=== PATIENT | female | born 1945 | race Caucasian/White ===

== ENCOUNTER → 2018-04-15 | Outpatient (CLI) | payer MEDICARE, BC ==
[2018-04-15 10:27] LABS: Basophils % (A) 1 %; Eosinophils # (A) 0.2 k/uL (0-0.7); Eosinophils % (A) 3 %; HCT 45.6 % (34.0-46.0); HGB 14.4 gm/dL (11.4-16.0); Lymphocytes # (A) 1.4 k/uL (1.0-4.8); Lymphocytes % (A) 19 %; MCH 29.6 pg (25.0-35.0); MCHC 31.6 g/dL (31.0-37.0); MCV 93.5 fL (80.0-100.0); Monocytes # (A) 0.4 k/uL (0-1.0); Monocytes % (A) 6 %; Neutrophils % (A) 70 %; Platelet Count 229 k/uL (150-450); RBC 4.88 m/uL (3.80-5.40); RDW 12.8 % (11.5-15.5); WBC 7.1 k/uL (3.8-10.6)
[2018-04-15 10:29] LABS: Appearance,Urine Cloudy (Clear); Bacteria,Urine Occasional /hpf; Bilirubin,Urine Negative (Negative); Blood,Urine Trace (Negative); Color,Urine Light Yellow; Glucose,Urine (UA) Negative (Negative); Hyaline Casts,Urine 1 /lpf (0-2); Ketones,Urine Negative (Negative); Leukocyte Esterase,Urine Large (Negative); Mucus,Urine Rare /hpf; Nitrite,Urine Positive (Negative); PH, Urine 5.5 (5.0-8.0); Protein,Urine Negative (Negative); RBC,Urine 2 /hpf (0-5); Specific Gravity,Urine 1.012 (1.001-1.035); Squamous Epithelial Cell,Urine 5 /hpf (0-4); Urobilinogen,Urine <2.0 mg/dL (<2.0); WBC,Urine 19 /hpf (0-5)
[2018-04-15 10:40] LABS: Albumin 4.4 g/dL (3.5-5.0); Calcium 9.8 mg/dL (8.4-10.2); Potassium 4.5 mmol/L (3.5-5.1); Total Bilirubin 0.4 mg/dL (0.2-1.3); Total Protein 7.3 g/dL (6.3-8.2); Uric Acid 5.5 mg/dL (3.7-7.4)
[2018-04-15 10:53] LABS: T4, Free (Free Thyroxine) 1.6 ng/dL (0.78-2.19)
[2018-04-15 17:54] LABS: Hemoglobin A1C 5.7 % (4.0-6.0)
== END | disposition home or self-care (01) ==
LOC: LABWHC1 09:42
PROVIDERS: ATTEND Internal Medicine
DX: Z00.00 Encounter for general adult medical examination without abnormal findings (principal); M81.0 Age-related osteoporosis without current pathological fracture; I10 Essential (primary) hypertension; E78.5 Hyperlipidemia, unspecified; E03.9 Hypothyroidism, unspecified
CPT/HCPCS: 36415; 80053; 80061; 81001; 82306; 82550; 83036; 83735; 84439; 84443; 84550; 85025

== ENCOUNTER → 2019-01-23 | Outpatient (CLI) | payer MEDICARE, BC ==
[2019-01-23 10:54] LABS: Basophils % (A) 1 %; Eosinophils # (A) 0.2 k/uL (0-0.7); Eosinophils % (A) 3 %; HGB 14.3 gm/dL (11.4-16.0); Lymphocytes % (A) 16 %; MCH 29.6 pg (25.0-35.0); MCHC 31.7 g/dL (31.0-37.0); MCV 93.4 fL (80.0-100.0); Mean Platelet Volume 7.6; Monocytes # (A) 0.3 k/uL (0-1.0); Monocytes % (A) 5 %; Neutrophils # (A) 4.7 k/uL (1.3-7.7); Neutrophils % (A) 75 %; Platelet Count 229 k/uL (150-450); RBC 4.82 m/uL (3.80-5.40); RDW 13.9 % (11.5-15.5); WBC 6.3 k/uL (3.8-10.6)
[2019-01-23 19:31] LABS: Albumin 4.5 g/dL (3.80-4.90); Albumin/Globulin Ratio 2.14 (1.60-3.17); Anion Gap 11.7 mmol/L (4.00-12.00); Calcium 9.5 mg/dL (8.7-10.3); Carbon Dioxide 24.3 mmol/L (21.6-31.8); Globulin 2.1 g/dL (1.6-3.3); Magnesium 1.9 mg/dL (1.5-2.4); Potassium 4.4 mmol/L (3.5-5.5); Total Bilirubin 0.5 mg/dL (0.3-1.2); Total Protein 6.6 g/dL (6.2-8.2); Uric Acid 5.8 mg/dL (2.9-7.7)
[2019-01-23 19:40] LABS: T4, Free (Free Thyroxine) 1.5 ng/dL (0.80-1.80)
[2019-01-23 20:53] LABS: Hemoglobin A1C 5.9 % (4.0-6.0)
== END | disposition home or self-care (01) ==
LOC: LABWHC1 10:05
PROVIDERS: ATTEND Internal Medicine Cardiovascular Disease
DX: R73.01 Impaired fasting glucose (principal); I10 Essential (primary) hypertension; F32.9 Major depressive disorder, single episode, unspecified; E03.9 Hypothyroidism, unspecified; E78.2 Mixed hyperlipidemia
CPT/HCPCS: 36415; 80053; 80061; 82550; 83036; 83735; 84439; 84443; 84550; 85025

== ENCOUNTER → 2019-10-15 | Outpatient (CLI) | payer MEDICARE, BC ==
[2019-10-15 12:02] LABS: Basophils # (A) 0.1 k/uL (0-0.2); Basophils % (A) 1 %; Eosinophils # (A) 0.3 k/uL (0-0.7); Eosinophils % (A) 4 %; HCT 44.3 % (34.0-46.0); HGB 14.1 gm/dL (11.4-16.0); Lymphocytes # (A) 1.1 k/uL (1.0-4.8); Lymphocytes % (A) 17 %; MCH 29.9 pg (25.0-35.0); MCHC 31.8 g/dL (31.0-37.0); MCV 94.1 fL (80.0-100.0); Mean Platelet Volume 7.7; Monocytes # (A) 0.3 k/uL (0-1.0); Monocytes % (A) 5 %; Neutrophils # (A) 4.8 k/uL (1.3-7.7); Neutrophils % (A) 73 %; Platelet Count 259 k/uL (150-450); RBC 4.71 m/uL (3.80-5.40); RDW 12.9 % (11.5-15.5); WBC 6.6 k/uL (3.8-10.6)
[2019-10-15 17:52] LABS: African American GFR (CKD) 72.5 (60.0-200.0); Albumin 4.6 g/dL (3.80-4.90); Albumin/Globulin Ratio 2.19 (1.60-3.17); Anion Gap 5.8 mmol/L (4.00-12.00); BUN/Creat Ratio 17.78 Ratio (12.00-20.00); Calcium 9.5 mg/dL (8.7-10.3); Carbon Dioxide 29.2 mmol/L (21.6-31.8); Globulin 2.1 g/dL (1.6-3.3); LDL Cholesterol,Calculated 86.2 mg/dL (0.0-131.0); Non-African American GFR(CKD) 62.5 (60.0-200.0); Potassium 4.2 mmol/L (3.5-5.5); Total Bilirubin 0.6 mg/dL (0.3-1.2); Total Protein 6.7 g/dL (6.2-8.2); VLDL Calculation 25.8 mg/dL (5.00-40.00)
[2019-10-15 17:59] LABS: T4, Free (Free Thyroxine) 1.4 ng/dL (0.80-1.80)
== END | disposition home or self-care (01) ==
LOC: LABWHC1 10:23
PROVIDERS: ATTEND Internal Medicine
DX: I10 Essential (primary) hypertension (principal); E03.9 Hypothyroidism, unspecified; E78.5 Hyperlipidemia, unspecified; R73.03 Prediabetes
CPT/HCPCS: 36415; 80053; 80061; 83036; 84439; 84443; 85025

== ENCOUNTER → 2020-06-11 | Outpatient (CLI) | payer MEDICARE, BC ==
[2020-06-11 22:23] LABS: Chol/HDL Ratio 2.93; LDL Cholesterol,Calculated 86.6 mg/dL (0.0-131.0); VLDL Calculation 25.4 mg/dL (5.00-40.00)
== END | disposition home or self-care (01) ==
LOC: LABWHC1 10:59
PROVIDERS: ATTEND Internal Medicine Cardiovascular Disease
DX: E78.2 Mixed hyperlipidemia (principal)
CPT/HCPCS: 36415; 80061; 84450; 84460

== ENCOUNTER → 2021-08-03 | Outpatient (CLI) | payer MEDICARE, BC ==
[~2021-08-03] MED LIST: BAMLANIVIMAB (EUA) 700 MG, ETESEVIMAB (EUA) 1,400 MG in SODIUM CHLORIDE 0.9% 50 ML IVPB ONE; SODIUM CHLORIDE 0.9% 50 ML IVPB ONE; SODIUM CHLORIDE 0.9% 500 ML 500 ML in EMPTY BAG 1 BAG IV PRN
[2021-08-03 10:29] VITALS: RESP 18; TEMP 97.8
[2021-08-03 11:43] VITALS: BP 183/82; PULSE 57
== END ==
LOC: PROCWHC3 10:09
PROVIDERS: ATTEND Internal Medicine
DX: U07.1 COVID-19 (principal); I51.9 Heart disease, unspecified; U09.9 Post COVID-19 condition, unspecified; Z88.2 Allergy status to sulfonamides
CPT/HCPCS: 96360; J3490; M0243

== ENCOUNTER → 2024-03-14 | Outpatient (CLI) | payer MEDICARE, BC ==
--- NOTE | 2024-03-14 09:38 | US ---
EXAMINATION TYPE: US kidneys/renal and bladder DATE OF EXAM: 03/14/2024 COMPARISON: CT 2015, US 2010 CLINICAL INDICATION: Female, 78 years old with history of R31.1 MICRO HEMATURIA; EXAM MEASUREMENTS: Right Kidney: 10.4 x 4.3 x 5.3 cm Left Kidney: 9.6 x 4.9 x 4.7 cm Right Kidney: No hydronephrosis or masses seen Left Kidney: No hydronephrosis or masses seen Bladder: not fully distended, appears wnl as seen Bilateral Jets seen: no There is no evidence for hydronephrosis at this point in time. No nephrolithiasis is seen. Corticome dullary differentiation is maintained bilaterally. No masses are identified. The urinary bladder is not fully distended but appears anechoic. Bilateral ureteral jets are not seen. IMPRESSION: No hydronephrosis or nephrolithiasis.
== END | disposition home or self-care (01) ==
LOC: RADUSWWP 08:41
PROVIDERS: ATTEND Urology
DX: R31.1 Benign essential microscopic hematuria (principal)
CPT/HCPCS: 76770

== ENCOUNTER → 2024-06-20 | Outpatient (CLI) | payer MEDICARE, BC ==
--- NOTE | 2024-06-20 17:37 | CT ---
INDICATION: Patient age:Female; 79 years old; Reason for study: N32.1 VESICOINTESTINAL FISTULA; [facility]. COMPARISON: CT abdomen and pelvis 06/14/2016, renal ultrasound 03/14/2024. TECHNIQUE: Standard transaxial images of the pelvis before and after the administration of dilute con trast material into the urinary bladder via Jennings catheter. Approximately 50 cc of dilute Isovue 70 w as injected through the catheter. Patient was unable to tolerate prone position. Coronal reformatted images were obtained from both data sets. One or more CT dose reduction strategies were utilized duri ng this examination. DLP administered was 691 mGycm. FINDINGS: Jennings catheter identified within the urinary bladder with a single focus of gas in the nondependent p ortion from Jennings catheter manipulation. Cystocele is redemonstrated The images of the urinary bladde r filled do not show evidence of contrast extravasation. No definitive mucosal injury is noted. There is some symmetric wall thickening in the posterior urinary bladder wall. There is no evidence of pneumoperitoneum, fluid free fluid, or adenopathy. Postsurgical changes of the anterior lower abdominal wall at midline with scarring demonstrated. The appendix is within normal limits. No focal bowel wall thickening or surrounding inflammatory regalado ges. Anastomosis at the rectosigmoid junction. No visualized evidence for obstruction. Uterus appears unremarkable. The osseous structures appear intact. Grade 1 anterolisthesis of L4-L5 without evidence of pars defec ts. IMPRESSION 1. No CT evidence for vesicointestinal fistula. 2. Similar urinary bladder cystocele with urinary bladder wall thickening. Correlate for cystitis urinalysis. [facility], , 06/20/2024 5:35 PM
== END | disposition home or self-care (01) ==
LOC: RADCTMAIN 15:35
PROVIDERS: ATTEND Urology
DX: N32.1 Vesicointestinal fistula
CPT/HCPCS: 72192

== ENCOUNTER → 2024-08-24 | Outpatient (CLI) | payer MEDICARE, BC ==
[2024-08-24 17:39] LABS: ALT 15 U/L (8-44); AST 23 U/L (13-35); BUN/Creat Ratio 19.78 Ratio (12.00-20.00); Blood Urea Nitrogen 17.8 mg/dL (9.0-27.0); Carbon Dioxide 24.1 mmol/L (21.6-31.8); Chloride 99 mmol/L (96-109); Chol/HDL Ratio 2.81 Ratio; Glucose 118 mg/dL (70-110); LDL Cholesterol,Calculated 77.9 mg/dL (0.0-131.0); Potassium 4.9 mmol/L (3.5-5.5); Sodium 136 mmol/L (135-145)
[2024-08-24 18:02] LABS: NT-Pro-B-Type Natriuretic Pept 289 pg/mL (0-450)
[2024-08-24 18:31] LABS: HCT 44.7 % (37.2-46.3); HGB 13.6 g/dL (12.0-15.0); MCH 29.1 pg (27.0-32.0); MCHC 30.4 g/dL (32.0-37.0); MCV 95.5 FL (80.0-97.0); Mean Platelet Volume 10.2 FL (9.5-12.2); NRBC Per 100 WBC 0 X 10*3/uL (0.00-0.01); Platelet Count 358 X 10*3/uL (140-440); RBC 4.68 X 10*6/uL (4.10-5.20); RDW 13.5 % (11.5-14.5); WBC 10.22 X 10*3/uL (4.50-10.00)
== END | disposition home or self-care (01) ==
LOC: LABWHC1 11:23
PROVIDERS: ATTEND Internal Medicine Cardiovascular Disease
DX: E78.2 Mixed hyperlipidemia (principal); R60.9 Edema, unspecified
CPT/HCPCS: 36415; 80048; 80061; 83880; 84443; 84450; 84460; 85027

== ENCOUNTER 2025-01-28 12:12 | Inpatient (IN) | payer MEDICARE, BC ==
--- NOTE | 2025-01-28 13:09 | ED ---
General Adult HPI - General Chief complaint: Recheck/Abnormal Lab/Rx Stated complaint: Weakness Time Seen by Provider: 01/28/25 12:46 Source: patient, RN notes reviewed Mode of arrival: ambulatory Limitations: no limitations - History of Present Illness Initial comments: 79-year-old female presents to the emergency department for generalized weakness. Patient states that this been going on for about a week. She notes that it is progressively worsening. Patient reports that because of this she is having difficulty with ambulation. She does note recurrent urinary tract infections. She is currently on Macrobid. She was on Bactrim prior to this. She does note continued symptoms of urinary frequency and dysuria. Denies any known fever. Does endorse chills. Denies any pain. She does report a fall that happened on . Denies any head injury. She is on Eliquis. - Related Data Home Medications Medication Instructions Recorded Confirmed Levothyroxine Sodium [Synthroid] 150 mcg PO DAILY 01/31/14 08/03/21 Simvastatin [Zocor] 10 mg PO HS 01/31/14 08/03/21 Losartan [Cozaar] 50 mg PO DAILY 07/30/15 08/03/21 Metoprolol Tartrate [Lopressor] 12.5 mg PO BID 07/30/15 08/03/21 Cetirizine HCl [Zyrtec] 10 mg PO DAILY PRN 04/09/16 08/03/21 Aspirin EC [Ecotrin] 325 mg PO DAILY 07/13/16 08/03/21 Azithromycin 250 mg PO BID 08/03/21 08/03/21 Latanoprost/Pf [Latanoprost 0.005% 1 drop BOTH EYES DAILY 08/03/21 08/03/21 Eye Drop] dexAMETHasone [Dexamethasone] 6 mg PO DAILY 08/03/21 08/03/21 timoloL maleate [timoloL maleate 1 drop BOTH EYES DAILY 08/03/21 08/03/21 0.25%] Allergies Allergy/AdvReac Type Severity Reaction Status Date / Time No Known Allergies Allergy Verified 01/28/25 12:16 Review of Systems ROS Statement: Those systems with pertinent positive or pertinent negative responses have been documented in the HPI. ROS Other: All systems not noted in ROS Statement are negative. Past Medical History Past Medical History: Hyperlipidemia, Hypertension, Musculoskeletal Disorder, Osteoarthritis (OA), Skin Disorder, Thyroid Disorder Additional Past Medical History / Comment(s): OCC PSORIASIS IN [place]. Radioactive Iodine tx for Thyroid 1999. Hx of Acute Diverticulitis W/ PERFORATION 08/26 - Colostomy @[facility]. UTI 04/2016. History of Any Multi-Drug Resistant Organisms: None Reported Past Surgical History: Bowel Resection, Cardiac Valve Replacement, Cholecystectomy, Heart Catheterization Additional Past Surgical History / Comment(s): 07/13/16 bilateral ureteral stents, extensive lysis of adhesions, colostomy reversal, peristomal hernia repair. Other surgical hx: Aortic Valve Replacement w/ Tissue Valve 01/2011. Colonoscopies. Colostomy 07/2015. Past Anesthesia/Blood Transfusion Reactions: Motion Sickness Additional Past Anesthesia/Blood Transfusion Reaction / Comment(s): MOTION SICKNESS CHILD Past Psychological History: Anxiety Smoking Status: Never smoker Past Alcohol Use History: None Reported Past Drug Use History: None Reported - Past Family History Mother Family Medical History: No Reported History, Hyperlipidemia, Hypertension, Renal Disease Additional Family Medical History / Comment(s): diverticulitis Father Family Medical History: Dementia, Hypertension Brother(s) Family Medical History: No Reported History Sister(s) Family Medical History: No Reported History Son(s) Family Medical History: No Reported History Daughter(s) Family Medical History: No Reported History General Exam Limitations: no limitations General appearance: alert, in no apparent distress Head exam: Present: atraumatic, normocephalic, normal inspection Eye exam: Present: normal appearance, PERRL, EOMI. Absent: scleral icterus, conjunctival injection, periorbital swelling ENT exam: Present: normal exam, mucous membranes moist Neck exam: Present: normal inspection. Absent: tenderness, meningismus, lymphadenopathy Respiratory exam: Present: normal lung sounds bilaterally. Absent: respiratory distress, wheezes, rales, rhonchi, stridor Cardiovascular Exam: Present: regular rate, normal rhythm, normal heart sounds. Absent: systolic murmur, diastolic murmur, rubs, gallop, clicks GI/Abdominal exam: Present: soft. Absent: distended, tenderness, guarding, rebound, rigid Extremities exam: Present: normal inspection, full ROM, normal capillary refill. Absent: tenderness, pedal edema, joint swelling, calf tenderness Neurological exam: Present: alert, oriented X3 Psychiatric exam: Present: normal affect, normal mood Skin exam: Present: warm, dry, intact, normal color. Absent: rash Course Vital Signs 01/28/25 12:13 Temperature 97.5 F L Pulse Rate 69 Respiratory 18 Rate Blood Pressure 125/85 O2 Sat by Pulse 96 Oximetry Medical Decision Making - Medical Decision Making Was pt. sent in by a medical professional or institution (SARAH Quiroz, MASSAGE OPERATOR, urgent care, hospital, or long-term...) When possible be specific @ -[No] Did you speak to anyone other than the patient for history (EMS, parent, family, police, friend...)? What history was obtained from this source @ -[No] Did you review nursing and triage notes (agree or disagree)? Why? @ -[I reviewed and agree with nursing and triage notes] Were old charts reviewed (outside hosp., previous admission, EMS record, old EKG, old radiological studies, urgent care reports/EKG's, long-term records)? Report findings @ -[No old charts were reviewed] Differential Diagnosis (chest pain, altered mental status, abdominal pain women, abdominal pain men, vaginal bleeding, weakness, fever, dyspnea, syncope, headache, dizziness, GI bleed, back pain, seizure, CVA, palpatations, mental health, musculoskeletal)? @ -Differential Weakness: Hypoglycemia, shock, sepsis, hyponatremia, anemia, infection, RI, ETOH, adverse medicine reaction, overdose, stroke, this is not meant to be an all-inclusive list. EKG interpreted by me (3pts min.). @ -EKG@1329 shows sinus rhythm with first-degree AV block rate of 60, WA 244, QRS 81, QT/QTc 414/460 X-rays interpreted by me (1pt min.). @ -Chest x-ray reveals chronic changes without acute process CT interpreted by me (1pt min.). @ -[None done] U/S interpreted by me (1pt. min.). @ -[None done] What testing was considered but not performed or refused? (CT, X-rays, U/S, labs)? Why? @ -[None] What meds were considered but not given or refused? Why? @ -[None] Did you discuss the management of the patient with other professionals (professionals i.e. SARAH Quiroz, MASSAGE OPERATOR, lab, RT, psych nurse, perinatal social worker, sighter, teacher, airfield engineer officer, social work case manager)? Give summary @ -[Management discussed with] Was smoking cessation discussed for >3mins.? @ -[No] Was critical care preformed (if so, how long)? @ -[No] Were there social determinants of health that impacted care today? How? (Homelessness, low income, unemployed, alcoholism, drug addiction, transportat ion, low edu. Level, literacy, decrease access to med. care, penitentiary, rehab)? @ -[No] Was there de-escalation of care discussed even if they declined (Discuss DNR or withdrawal of care, Hospice)? DNR status @ -[No] What co-morbidities impacted this encounter? (DM, HTN, Smoking, COPD, CAD, Cancer, CVA, ARF, Chemo, Hep., AIDS, mental health diagnosis, sleep apnea, morbid obesity)? @ -[None] Was patient admitted / discharged? Hospital course, mention meds given and route, prescriptions, significant lab abnormalities, going to OR and other pertinent info. @ -[hospital course] Undiagnosed new problem with uncertain prognosis? @ -[No] Drug Therapy requiring intensive monitoring for toxicity (Heparin, Nitro, Insulin, Cardizem)? @ -[No] Were any procedures done? @ -[No] Diagnosis/symptom? @ -[default] Acute, or Chronic, or Acute on Chronic? @ -[default] Uncomplicated (without systemic symptoms) or Complicated (systemic symptoms)? @ -[default] Side effects of treatment? @ -[No] Exacerbation, Progression, or Severe Exacerbation? @ -[No] Poses a threat to life or bodily function? How? (Chest pain, USA, RI, pneumonia, PE, COPD, DKA, ARF, appy, cholecystitis, CVA, Diverticulitis, Homicidal, Suicidal, threat to staff... and all critical care pts) @ -[No] - Lab Data Result diagrams: 01/28/25 13:17 01/28/25 13:17 Lab Results 01/28/25 01/28/25 01/28/25 Range/Units 13:17 13:17 13:17 WBC 8.46 (4.50-10.00) 10*3/uL RBC 4.55 (4.10-5.20) 10*6/uL Hgb 14.0 (12.0-15.0) g/dL Hct 41.3 (37.2-46.3) % MCV 90.8 (80.0-97.0) fL MCH 30.8 (27.0-32.0) pg MCHC 33.9 (32.0-37.0) g/dL Plt Count 328 (140-440) 10*3/uL MPV 9.3 L (9.5-12.2) fL Immature Gran % (Auto) 0.5 % Neutrophils % 76.4 % Lymphocytes % 12.3 % Monocytes % 7.8 % Eosinophils % 2.4 % Basophils % 0.6 % Immature Gran # 0.04 (0.00-0.04) 10*3/uL Neutrophils # 6.47 (1.80-7.70) 10*3/uL Lymphocytes # 1.04 (0.90-5.00) 10*3/uL Monocytes # 0.66 (0.20-1.00) 10*3/uL Eosinophils # 0.20 (0.04-0.35) 10*3/uL Basophils # 0.05 (0.00-0.10) 10*3/uL PT 11.7 (10.0-12.5) sec INR 1.1 (<1.2) APTT 24.3 (22.0-30.0) sec Sodium (137-145) mmol/L Potassium (3.5-5.1) mmol/L Chloride (98-107) mmol/L Carbon Dioxide (22-30) mmol/L Anion Gap mmol/L BUN (7-17) mg/dL Creatinine (0.52-1.04) mg/dL Est GFR (CKD-EPI)AfAm (>60 ml/min/1.73 sqM) Est GFR (CKD-EPI)NonAf (>60 ml/min/1.73 sqM) Glucose (74-99) mg/dL Plasma Lactic Acid Garcia (0.7-2.0) mmol/L Calcium (8.4-10.2) mg/dL Total Bilirubin (0.2-1.3) mg/dL AST (14-36) U/L ALT (4-34) U/L Alkaline Phosphatase (38-126) U/L Total Protein (6.3-8.2) g/dL Albumin (3.5-5.0) g/dL Urine Color Yellow Urine Appearance Cloudy H (Clear) Urine pH 5.5 (5.0-8.0) Ur Specific Wyckoff 1.017 (1.001-1.035) Urine Protein Negative (Negative) Urine Glucose (UA) Negative (Negative) Urine Ketones Negative (Negative) Urine Blood Large H (Negative) Urine Nitrite Negative (Negative) Urine Bilirubin Negative (Negative) Urine Urobilinogen <2.0 (<2.0) mg/dL Ur Leukocyte Esterase Large H (Negative) Urine RBC >182 H (0-5) /hpf Urine WBC 123 H (0-5) /hpf Ur Squamous Epith Cells 10 H (0-4) /hpf Urine Bacteria Few H (None) /hpf Urine Mucus Rare H (None) /hpf 01/28/25 01/28/25 Range/Units 13:17 13:17 WBC (4.50-10.00) 10*3/uL RBC (4.10-5.20) 10*6/uL Hgb (12.0-15.0) g/dL Hct (37.2-46.3) % MCV (80.0-97.0) fL MCH (27.0-32.0) pg MCHC (32.0-37.0) g/dL Plt Count (140-440) 10*3/uL MPV (9.5-12.2) fL Immature Gran % (Auto) % Neutrophils % % Lymphocytes % % Monocytes % % Eosinophils % % Basophils % % Immature Gran # (0.00-0.04) 10*3/uL Neutrophils # (1.80-7.70) 10*3/uL Lymphocytes # (0.90-5.00) 10*3/uL Monocytes # (0.20-1.00) 10*3/uL Eosinophils # (0.04-0.35) 10*3/uL Basophils # (0.00-0.10) 10*3/uL PT (10.0-12.5) sec INR (<1.2) APTT (22.0-30.0) sec Sodium 134 L (137-145) mmol/L Potassium 4.9 (3.5-5.1) mmol/L Chloride 102 (98-107) mmol/L Carbon Dioxide 22 (22-30) mmol/L Anion Gap 10 mmol/L BUN 17 (7-17) mg/dL Creatinine 0.71 (0.52-1.04) mg/dL Est GFR (CKD-EPI)AfAm >90 (>60 ml/min/1.73 sqM) Est GFR (CKD-EPI)NonAf 81 (>60 ml/min/1.73 sqM) Glucose 109 H (74-99) mg/dL Plasma Lactic Acid Garcia 0.9 (0.7-2.0) mmol/L Calcium 10.1 (8.4-10.2) mg/dL Total Bilirubin 0.8 (0.2-1.3) mg/dL AST 71 H (14-36) U/L ALT 45 H (4-34) U/L Alkaline Phosphatase 81 (38-126) U/L Total Protein 7.4 (6.3-8.2) g/dL Albumin 4.2 (3.5-5.0) g/dL Urine Color Urine Appearance (Clear) Urine pH (5.0-8.0) Ur Specific Wyckoff (1.001-1.035) Urine Protein (Negative) Urine Glucose (UA) (Negative) Urine Ketones (Negative) Urine Blood (Negative) Urine Nitrite (Negative) Urine Bilirubin (Negative) Urine Urobilinogen (<2.0) mg/dL Ur Leukocyte Esterase (Negative) Urine RBC (0-5) /hpf Urine WBC (0-5) /hpf Ur Squamous Epith Cells (0-4) /hpf Urine Bacteria (None) /hpf Urine Mucus (None) /hpf Disposition Clinical Impression: Generalized weakness, UTI (urinary tract infection) Disposition: ADMITTED IP TO THIS HOSP Condition: Stable Is patient prescribed a controlled substance at d/c from ED?: No Referrals: Niles Johnston DO [Primary Care Provider] - 1-2 days
[2025-01-28] MEDS: SODIUM CHLORIDE 0.9% 1,000 ML IV ONE (13:18)
[2025-01-28 13:40] LABS: Basophils # (A) 0.05 10*3/uL (0.00-0.10); Basophils % (A) 0.6 %; Eosinophils % (A) 2.4 %; HCT 41.3 % (37.2-46.3); Lymphocytes # (A) 1.04 10*3/uL (0.90-5.00); Lymphocytes % (A) 12.3 %; MCH 30.8 pg (27.0-32.0); MCHC 33.9 g/dL (32.0-37.0); MCV 90.8 fL (80.0-97.0); Mean Platelet Volume 9.3 fL (9.5-12.2); Monocytes # (A) 0.66 10*3/uL (0.20-1.00); Monocytes % (A) 7.8 %; Neutrophils # (A) 6.47 10*3/uL (1.80-7.70); Neutrophils % (A) 76.4 %; Platelet Count 328 10*3/uL (140-440); RBC 4.55 10*6/uL (4.10-5.20); RDW 13.5 % (11.5-14.5); WBC 8.46 10*3/uL (4.50-10.00)
[2025-01-28 13:52] LABS: ALT 45 U/L (4-34); African American GFR (CKD) >90 (>60 ml/min/1.73 sqM); Albumin 4.2 g/dL (3.5-5.0); Anion Gap 10 mmol/L; Appearance,Urine Cloudy (Clear); Bacteria,Urine Few /hpf; Bilirubin,Urine Negative (Negative); Blood Urea Nitrogen 17 mg/dL (7-17); Blood,Urine Large (Negative); Calcium 10.1 mg/dL (8.4-10.2); Carbon Dioxide 22 mmol/L (22-30); Chloride 102 mmol/L (98-107); Color,Urine Yellow; Glucose 109 mg/dL (74-99); Glucose,Urine (UA) Negative (Negative); Ketones,Urine Negative (Negative); Leukocyte Esterase,Urine Large (Negative); Mucus,Urine Rare /hpf; Nitrite,Urine Negative (Negative); Non-African American GFR(CKD) 81 (>60 ml/min/1.73 sqM); PH, Urine 5.5 (5.0-8.0); Protein,Urine Negative (Negative); RBC,Urine >182 /hpf (0-5); Sodium 134 mmol/L (137-145); Specific Gravity,Urine 1.017 (1.001-1.035); Squamous Epithelial Cell,Urine 10 /hpf (0-4); Total Bilirubin 0.8 mg/dL (0.2-1.3); Total Protein 7.4 g/dL (6.3-8.2); Urobilinogen,Urine <2.0 mg/dL (<2.0); WBC,Urine 123 /hpf (0-5)
[2025-01-28 13:54] LABS: INR 1.1 (<1.2); Partial Thromboplastin Time 24.3 sec (22.0-30.0); Prothrombin Time 11.7 sec (10.0-12.5)
--- NOTE | 2025-01-28 14:06 | XR ---
EXAMINATION TYPE: XR chest 2V DATE OF EXAM: 01/28/2025 CLINICAL INDICATION: Female, 79 years old with history of Weakness, TECHNIQUE: Frontal and lateral views of the chest are obtained. COMPARISON: Chest x-ray July 15, 2016 FINDINGS: Overlying Sternal wires along with metallic aortic valve are redemonstrated. Background ch ronic emphysematous changes are present. There is no focal air space opacity, pleural effusion, or pn eumothorax seen. Persistent cardiomegaly. The osseous structures are intact. IMPRESSION: Chronic changes and cardiomegaly without acute pulmonary process. [facility], , 01/28/2025 2:04 PM
[2025-01-28 14:12] LABS: Potassium 4.9 mmol/L (3.5-5.1)
[2025-01-28 14:13] LABS: AST 71 U/L (14-36); Alkaline Phosphatase 81 U/L (38-126)
[2025-01-28] MEDS ORDERED: IBUPROFEN 400 MG TAB PO PRN (15:35)
[2025-01-28] MEDS ORDERED: NALOXONE 0.4 MG/ML 1 ML VIAL IV PRN (15:35)
[2025-01-28] MEDS ORDERED: KETOROLAC 15 MG/ML 1 ML VIAL IVP PRN (15:35)
[2025-01-28] MEDS: SODIUM CHLORIDE 0.9% 1,000 ML IV SCH (16:05)
--- NOTE | 2025-01-28 16:42 | P.HPIM ---
History of Present Illness H&P Date: 01/28/25 Patient is a 79-year-old female with past medical history of hypertension, hyperlipidemia, hypothyroidism, history of bilateral ureteral stents, TAVR, who presented to the ER with generalized weakness and and failed outpatient UTI treatment. Patient was initially started on Bactrim switched to Macrobid, still notices dysuria, no associated fevers however endorses chills. Patient follows with urology at [facility], had cystoscopy done last Tuesday, she started having worsening symptoms since, urine cultures reviewed through patient's MyChart, growing Klebsiella, no antibiotic sensitivity available, looks like she was switched to nitrofurantoin based on sensitivity. She has been having with recurrent UTI for years, states that she is almost always symptomatic and rarely gets some improvement that is usually short lasting, so far workup was unrevealing. Patient and her daughter Patient had a fall last with no head injury On admission patient is afebrile, heart rate in 60s, normotensive, satting well on room air. Lab work showed normal CBC, coagulation panel, chemistry profile significant for mild hyponatremia 134, normal potassium, bicarb, creatinine, glucose slightly elevated 109, AST and ALT elevated 71 and 45 accordingly, UA showed cloudy urine with positive leukocyte esterase, WBC more than 182, bacteriuria, hematuria. Patient was provided with IV ceftriaxone and admitted as observation for failed outpatient UTI treatment. Urine culture sent Pertinent positives and negatives as discussed in HPI, a complete review of systems was performed and all other systems are negative. Patient seen and examined at bedside. [] Vital signs reviewed General: nontoxic, no distress, appears at stated age Derm: warm, dry Head: atraumatic, normocephalic, symmetric Eyes: EOMI, no lid lag, anicteric sclera, pupils equal round reactive to light ENT: Nose and ears atraumatic Neck: No thyromegaly, supple Mouth: no lip lesion, mucus membranes moist Cardiovascular: S1S2 reg, murmur, no edema Lungs: clear to auscultation bilateral, no rhonchi, no rales, no wheeze, no accessory muscle use Abdominal: soft, lower abdominal tenderness, no guarding, no appreciable o rganomegaly Ext: no gross muscle atrophy, muscle strength muscle strength 5 out of 5 in all 4 extremities, no contractures Neuro: CN II-XII grossly intact Psych: Alert, oriented, appropriate affect Assessment/Plan: UTI Generalized weakness -Continue ceftriaxone 2 g daily SOT 01/28, follow-up urine cultures -Consult urology -Reviewed with patient culture from [facility], no antibiotic sensitivity available, urine was growing Klebsiella o. -PT OT hypertension hyperlipidemia hypothyroidism history of bilateral ureteral stents TAVR - Resume home medications once reconciled The patient is admitted with an anticipated less than 2 midnight stay as observation status for evaluation of UTI failed outpatient treatment. CODE STATUS: DNR/DNI DVT prophylaxis: Eliquis Anticipated discharge date TBD Anticipated discharge place: TBD A total of 38 minutes was spent on the care of this complex patient more than 50% of the time was spent in counseling and care coordination. Past Medical History Past Medical History: Hyperlipidemia, Hypertension, Musculoskeletal Disorder, Osteoarthritis (OA), Skin Disorder, Thyroid Disorder Additional Past Medical History / Comment(s): OCC PSORIASIS IN [place]. Radioactive Iodine tx for Thyroid 1999. Hx of Acute Diverticulitis W/ PERFORATION 08/26 - Colostomy @[facility]. UTI 04/2016. History of Any Multi-Drug Resistant Organisms: None Reported Past Surgical History: Bowel Resection, Cardiac Valve Replacement, Cholecystectomy, Heart Catheterization Additional Past Surgical History / Comment(s): 07/13/16 bilateral ureteral stents, extensive lysis of adhesions, colostomy reversal, peristomal hernia repair. Other surgical hx: Aortic Valve Replacement w/ Tissue Valve 01/2011. Colonoscopies. Colostomy 07/2015. Past Anesthesia/Blood Transfusion Reactions: Motion Sickness Additional Past Anesthesia/Blood Transfusion Reaction / Comment(s): MOTION SICK NESS CHILD Past Psychological History: Anxiety Smoking Status: Never smoker Past Alcohol Use History: None Reported Past Drug Use History: None Reported - Past Family History Mother Family Medical History: No Reported History, Hyperlipidemia, Hypertension, Renal Disease Additional Family Medical History / Comment(s): diverticulitis Father Family Medical History: Dementia, Hypertension Brother(s) Family Medical History: No Reported History Sister(s) Family Medical History: No Reported History Son(s) Family Medical History: No Reported History Daughter(s) Family Medical History: No Reported History Medications and Allergies Home Medications Medication Instructions Recorded Confirmed Type Levothyroxine Sodium [Synthroid] 150 mcg PO DAILY 01/31/14 08/03/21 History Simvastatin [Zocor] 10 mg PO HS 01/31/14 08/03/21 History Losartan [Cozaar] 50 mg PO DAILY 07/30/15 08/03/21 History Metoprolol Tartrate [Lopressor] 12.5 mg PO BID 07/30/15 08/03/21 History Cetirizine HCl [Zyrtec] 10 mg PO DAILY PRN 04/09/16 08/03/21 History Aspirin EC [Ecotrin] 325 mg PO DAILY 07/13/16 08/03/21 History Azithromycin 250 mg PO BID 08/03/21 08/03/21 History Latanoprost/Pf [Latanoprost 0.005% 1 drop BOTH EYES DAILY 08/03/21 08/03/21 History Eye Drop] dexAMETHasone [Dexamethasone] 6 mg PO DAILY 08/03/21 08/03/21 History timoloL maleate [timoloL maleate 1 drop BOTH EYES DAILY 08/03/21 08/03/21 His tory 0.25%] Allergies Allergy/AdvReac Type Severity Reaction Status Date / Time No Known Allergies Allergy Verified 01/28/25 12:16 Physical Exam Vitals: Vital Signs Temp Pulse Resp BP Pulse Ox 01/28/25 12:13 97.5 F L 69 18 125/85 96 Intake and Output 01/28/25 01/28/25 01/28/25 06:59 14:59 22:59 Other: Weight 72.575 kg Results CBC & Chem 7: 01/28/25 13:17 01/28/25 13:17 Labs: Abnormal Lab Results - Last 24 Hours (Table) 01/28/25 01/28/25 01/28/25 Range/Units 13:17 13:17 13:17 MPV 9.3 L (9.5-12.2) fL Sodium 134 L (137-145) mmol/L Glucose 109 H (74-99) mg/dL AST 71 H (14-36) U/L ALT 45 H (4-34) U/L Urine Appearance Cloudy H (Clear) Urine Blood Large H (Negative) Ur Leukocyte Esterase Large H (Negative) Urine RBC >182 H (0-5) /hpf Urine WBC 123 H (0-5) /hpf Ur Squamous Epith Cells 10 H (0-4) /hpf Urine Bacteria Few H (None) /hpf Urine Mucus Rare H (None) /hpf
[2025-01-29] MEDS: LEVOTHYROXINE 75 MCG TAB PO SCH (05:52)
--- NOTE | 2025-01-29 08:04 | P.GSCN ---
History of Present Illness Consult date: 01/29/25 History of present illness: 79 yo female admitted for a uti. She has a history of recurrent utis. SHe follows with the urology department at [facility] . She recently was diagnosed and treated with ab from [facility] for a uti. SHe had a ct scan in 2023 that identified a cystocele but no other urological abnormalities. She has been seen in the past in our office both by myself and most recently. Her residual have been less than 3 ounces. She she recently had a cystoscopy there that she stated showed inflammation of her bladder. Had a CT scan in June 2024 that did not show any evidence of fistula or urologic abnormalities. She had been placed on suppressive antibiotics. She continued to have urine infection despite that. referred her to [facility] for further urologic evaluation. She had cystoscopy there that was inconclusive. There is no historical or radiographic evidence of a colovesical fistula. Review of Systems All systems: negative Past Medical History Past Medical History: Atrial Fibrillation, Hyperlipidemia, Hypertension, Musculoskeletal Disorder, Osteoarthritis (OA), Skin Disorder, Thyroid Disorder Additional Past Medical History / Comment(s): OCC PSORIASIS IN [place]. Radioactive Iodine tx for Thyroid 1999. Hx of Acute Diverticulitis W/ PERFORATION 08/26 - Colostomy @[facility]. UTI 04/2016. History of Any Multi-Drug Resistant Organisms: None Reported Past Surgical History: Bowel Resection, Cardiac Valve Replacement, Cholecystectomy, Heart Catheterization Additional Past Surgical History / Comment(s): 07/13/[address], extensive lysis of adhesions, colostomy reversal, peristomal hernia repair. Other surgical hx: Aortic Valve Replacement w/ Tissue Valve 01/2011. Colonoscopies. Colostomy 07/2015. Past Anesthesia/Blood Transfusion Reactions: Motion Sickness Additional Past Anesthesia/Blood Transfusion Reaction / Comm: MOTION SICKNESS CHILD Past Psychological History: Anxiety Additional Psychological History / Comment(s): MINOR, NO RX CURRENTLY. Smoking Status: Never smoker Past Alcohol Use History: None Reported Past Drug Use History: None Reported - Past Family History Mother Family Medical History: Hyperlipidemia, Hypertension, Renal Disease Additional Family Medical History / Comment(s): diverticulitis Father Family Medical History: Dementia, Hypertension Brother(s) Family Medical History: No Reported History Sister(s) Family Medical History: No Reported History Son(s) Family Medical History: No Reported History Daughter(s) Family Medical History: No Reported History Medications and Allergies Home Medications Medication Instructions Recorded Confirmed Type Simvastatin [Zocor] 10 mg PO HS 01/31/14 01/28/25 History Losartan [Cozaar] 50 mg PO DAILY 07/30/15 01/28/25 History Metoprolol Tartrate [Lopressor] 12.5 mg PO BID 07/30/15 01/28/25 History Latanoprost/Pf [Latanoprost 0.005% 1 drop BOTH EYES HS 08/03/21 01/28/25 History Eye Drop] timoloL maleate [timoloL maleate 1 drop BOTH EYES DAILY 08/03/21 01/28/25 History 0.25%] Apixaban [Eliquis] 5 mg PO BID 01/28/25 01/28/25 History Levothyroxine Sodium [Synthroid] 150 mcg PO DAILY 01/28/25 01/28/25 History Nitrofurantoin Monohyd/M-Cryst 100 mg PO Q12HR 01/28/25 01/28/25 History [Macrobid] Allergies Allergy/AdvReac Type Severity Reaction Status Date / Time No Known Allergies Allergy Verified 01/28/25 16:49 Surgical - Exam Vital Signs Temp Pulse Resp BP Pulse Ox 97.5 F L 69 18 125/85 96 01/28/25 12:13 01/28/25 12:13 01/28/25 12:13 01/28/25 12:13 01/28/25 12:13 Results - Labs 01/28/25 13:17 01/28/25 13:17 Abnormal Lab Results - Last 24 Hours (Table) 01/28/25 01/28/25 01/28/25 Range/Units 13:17 13:17 13:17 MPV 9.3 L (9.5-12.2) fL Sodium 134 L (137-145) mmol/L Glucose 109 H (74-99) mg/dL AST 71 H (14-36) U/L ALT 45 H (4-34) U/L Urine Appearance Cloudy H (Clear) Urine Blood Large H (Negative) Ur Leukocyte Esterase Large H (Negative) Urine RBC >182 H (0-5) /hpf Urine WBC 123 H (0-5) /hpf Ur Squamous Epith Cells 10 H (0-4) /hpf Urine Bacteria Few H (None) /hpf Urine Mucus Rare H (None) /hpf Diabetes panel 01/28/25 Range/Units 13:17 Sodium 134 L (137-145) mmol/L Potassium 4.9 (3.5-5.1) mmol/L Chloride 102 (98-107) mmol/L Carbon Dioxide 22 (22-30) mmol/L BUN 17 (7-17) mg/dL Creatinine 0.71 (0.52-1.04) mg/dL Glucose 109 H (74-99) mg/dL Calcium 10.1 (8.4-10.2) mg/dL AST 71 H (14-36) U/L ALT 45 H (4-34) U/L Alkaline Phosphatase 81 (38-126) U/L Total Protein 7.4 (6.3-8.2) g/dL Albumin 4.2 (3.5-5.0) g/dL Calcium panel 01/28/25 Range/Units 13:17 Calcium 10.1 (8.4-10.2) mg/dL Albumin 4.2 (3.5-5.0) g/dL Pituitary panel 01/28/25 Range/Units 13:17 Sodium 134 L (137-145) mmol/L Potassium 4.9 (3.5-5.1) mmol/L Chloride 102 (98-107) mmol/L Carbon Dioxide 22 (22-30) mmol/L BUN 17 (7-17) mg/dL Creatinine 0.71 (0.52-1.04) mg/dL Glucose 109 H (74-99) mg/dL Calcium 10.1 (8.4-10.2) mg/dL Adrenal panel 01/28/25 Range/Units 13:17 Sodium 134 L (137-145) mmol/L Potassium 4.9 (3.5-5.1) mmol/L Chloride 102 (98-107) mmol/L Carbon Dioxide 22 (22-30) mmol/L BUN 17 (7-17) mg/dL Creatinine 0.71 (0.52-1.04) mg/dL Glucose 109 H (74-99) mg/dL Calcium 10.1 (8.4-10.2) mg/dL Total Bilirubin 0.8 (0.2-1.3) mg/dL AST 71 H (14-36) U/L ALT 45 H (4-34) U/L Alkaline Phosphatase 81 (38-126) U/L Total Protein 7.4 (6.3-8.2) g/dL Albumin 4.2 (3.5-5.0) g/dL - Imaging CT scan - abdomen: report reviewed, image reviewed CT scan - pelvis: report reviewed, image reviewed Assessment and Plan Assessment: Impression: recurrent uti. acute uti being treated with culture specific ab based on results from [facility]. Recommendations: Since she follows with urology at [facility] and had a culture from there she should continue to fu there after discharge. I will obtain a postvoid residual while she is here however.
[2025-01-29] MEDS ORDERED: ENOXAPARIN 40 MG/0.4 ML SYRINGE SQ SCH (09:00)
[2025-01-29] MEDS: LOSARTAN 50 MG TAB PO SCH (09:53)
[2025-01-29] MEDS: METOPROLOL TARTRATE 25 MG TAB PO SCH (09:54)
[2025-01-29] MEDS: TIMOLOL 0.25% OPHTH DROPS 5 ML BTL BOTH EYES SCH (12:28)
--- NOTE | 2025-01-29 14:15 | P.PN ---
Subjective Progress Note Date: 01/29/25 Hospital Course: Patient is a 79-year-old female with past medical history of hypertension, hyp erlipidemia, hypothyroidism, history of bilateral ureteral stents, TAVR, who presented to the ER with generalized weakness and and failed outpatient UTI treatment. Patient was initially started on Bactrim switched to Macrobid, still notices dysuria, no associated fevers however endorses chills. Patient follows with urology at [facility], had cystoscopy done last Tuesday, she started having worsening symptoms since, urine cultures reviewed through patient's MyChart, growing Klebsiella, no antibiotic sensitivity available, looks like she was switched to nitrofurantoin based on sensitivity. She has been having with recurrent UTI for years, states that she is almost always symptomatic and rarely gets some improvement that is usually short lasting, so far workup was unrevealing. Patient and her daughter Patient had a fall last with no head injury On admission patient is afebrile, heart rate in 60s, normotensive, satting well on room air. Lab work showed normal CBC, coagulation panel, chemistry profile significant for mild hyponatremia 134, normal potassium, bicarb, creatinine, glucose slightly elevated 109, AST and ALT elevated 71 and 45 accordingly, UA showed cloudy urine with positive leukocyte esterase, WBC more than 182, bacteriuria, hematuria. Patient was provided with IV ceftriaxone and admitted as observation for failed outpatient UTI treatment. Urine culture sent. Urology consulted, recommend continuing current management and following up with urology at [facility]. Urine culture still pending, patient and her family are unable to get final on full urine cultures report from a week ago, thus, we will wait for urine cultures obtained in the ER as patient failed outpatient treatment. 01/29 she feels somewhat better, still experiences dysuria, no residual volumes Pertinent positives and negatives as discussed above, a complete review of systems was performed and all other systems are negative. Vitals Signs Reviewed. General: [nontoxic], [no distress], [appears at stated age] Derm: [warm], [dry] Head: [atraumatic], [normocephalic], [symmetric] Eyes: [EOMI], [no lid lag], [anicteric sclera] Mouth: [no lip lesion], [mucus membranes moist] Cardiovascular: [S1S2 reg], [no murmur] Lungs: [CTA bilateral], [no rhonchi, no rales] , [no accessory muscle use] Abdominal: [soft], mild lower abdominal tenderness still present], [no guarding], [no appreciable organomegaly] Ext: [no gross muscle atrophy], [no edema], [no contractures] Neuro: [ CN II-XI grossly intact], [no focal neuro deficits] Psych: [Alert], [oriented], [appropriate affect] Assessment and Plan:UTI Generalized weakness -Continue ceftriaxone 2 g daily SOT 01/28, follow-up urine cultures -Consult urology, appreciate recommendations, reviewed note -Reviewed with patient culture from [facility], no antibiotic sensitivity available, urine was growing Klebsiella o. -PT OT hypertension hyperlipidemia hypothyroidism history of bilateral ureteral stents TAVR - Resume home medications once reconciled The patient is admitted with an anticipated less than 2 midnight stay as obser vation status for evaluation of UTI failed outpatient treatment. CODE STATUS: DNR/DNI DVT prophylaxis: Eliquis Anticipated discharge date TBD Anticipated discharge place: TBD Objective - Vital Signs Vital signs: Vital Signs Temp 97.5 F L 01/29/25 07:00 Pulse 72 01/29/25 07:00 Resp 16 01/29/25 07:00 BP 154/82 01/29/25 07:00 Pulse Ox 97 01/29/25 07:00 FiO2 Intake & Output 01/28/25 01/29/25 01/29/25 18:59 06:59 18:59 Output Total 550 Balance -550 Weight 72.575 kg 72.575 kg Output: Urine 550 Other: Voiding Method External Catheter # Voids 1 # Bowel Movements 1 - Labs CBC & Chem 7: 01/28/25 13:17 01/28/25 13:17
[2025-01-29] MEDS: ATORVASTATIN 10 MG TAB PO SCH (20:17)
[2025-01-29] MEDS: LATANOPROST 0.005% OPHTH DROPS 2.5 ML BTL BOTH EYES SCH (21:11)
[2025-01-29] MEDS: APIXABAN 5 MG TAB PO SCH (21:11)
[2025-01-30 15:45] LABS: Basophils # (A) 0.03 10*3/uL (0.00-0.10); Basophils % (A) 0.4 %; Eosinophils % (A) 2.5 %; HCT 41.2 % (37.2-46.3); HGB 13.4 g/dL (12.0-15.0); Lymphocytes # (A) 1.51 10*3/uL (0.90-5.00); Lymphocytes % (A) 18.6 %; MCH 30.2 pg (27.0-32.0); MCHC 32.5 g/dL (32.0-37.0); Mean Platelet Volume 9.1 fL (9.5-12.2); Monocytes # (A) 0.64 10*3/uL (0.20-1.00); Monocytes % (A) 7.9 %; Neutrophils # (A) 5.69 10*3/uL (1.80-7.70); Neutrophils % (A) 70.2 %; Platelet Count 332 10*3/uL (140-440); RBC 4.43 10*6/uL (4.10-5.20); RDW 13.4 % (11.5-14.5)
--- NOTE | 2025-01-30 16:03 | P.PN ---
Subjective Progress Note Date: 01/30/25 Hospital Course: Patient is a 79-year-old female with past medical history of hypertension, hyp erlipidemia, hypothyroidism, history of bilateral ureteral stents, TAVR, who presented to the ER with generalized weakness and and failed outpatient UTI treatment. Patient was initially started on Bactrim switched to Macrobid, still notices dysuria, no associated fevers however endorses chills. Patient follows with urology at [facility], had cystoscopy done last Tuesday, she started having worsening symptoms since, urine cultures reviewed through patient's MyChart, growing Klebsiella, no antibiotic sensitivity available, looks like she was switched to nitrofurantoin based on sensitivity. She has been having with recurrent UTI for years, states that she is almost always symptomatic and rarely gets some improvement that is usually short lasting, so far workup was unrevealing. Patient and her daughter Patient had a fall last with no head injury On admission patient is afebrile, heart rate in 60s, normotensive, satting well on room air. Lab work showed normal CBC, coagulation panel, chemistry profile significant for mild hyponatremia 134, normal potassium, bicarb, creatinine, glucose slightly elevated 109, AST and ALT elevated 71 and 45 accordingly, UA showed cloudy urine with positive leukocyte esterase, WBC more than 182, bacteriuria, hematuria. Patient was provided with IV ceftriaxone and admitted as observation for failed outpatient UTI treatment. Urine culture sent. Urology consulted, recommend continuing current management and following up with urology at [facility]. Urine culture still pending, patient and her family are unable to get final on full urine cultures report from a week ago, thus, we will wait for urine cultures obtained in the ER as patient failed outpatient treatment. 01/29 she feels somewhat better, still experiences dysuria, no residual volumes 01/30: Seen and examined at bedside, continues to complain of frequency, she needs to use the bathroom every hour, had 2 episodes of loose bowel movement this morning and couple overnight. No send C. difficile. I was later notified that patient had an episode of gross hematuria, blood clots. Hemoglobin stat checked and showed hemoglobin of 13.4, urine cultures from [facility] received a nd reviewed, patient growing Klebsiella oxytoca resistant to ampicillin, cefazolin Bactrim, susceptible to nitrofurantoin, pip-tazo, ertapenem, Cipro, ceftriaxone, cefepime. Patient will be switched to inpatient for hemoglobin trend and monitoring of gross hematuria. Pertinent positives and negatives as discussed above, a complete review of systems was performed and all other systems are negative. Vitals Signs Reviewed. General: [nontoxic], [no distress], [appears at stated age] Derm: [warm], [dry] Head: [atraumatic], [normocephalic], [symmetric] Eyes: [EOMI], [no lid lag], [anicteric sclera] Mouth: [no lip lesion], [mucus membranes moist] Cardiovascular: [S1S2 reg], [no murmur] Lungs: [CTA bilateral], [no rhonchi, no rales] , [no accessory muscle use] Abdominal: [soft], mild lower abdominal tenderness still present], [no guarding], [no appreciable organomegaly] Ext: [no gross muscle atrophy], [no edema], [no contractures] Neuro: [ CN II-XI grossly intact], [no focal neuro deficits] Psych: [Alert], [oriented], [appropriate affect] Assessment and Plan: UTI Klebsiella oxytoca Gross hematuria Diarrhea Generalized weakness -Continue ceftriaxone 2 g daily SOT 01/28, -Consult urology, appreciate recommendations, reviewed note -Monitor CBC, hold Eliquis -C. difficile ordered and pending -PT OT-recommends home with home care hypertension hyperlipidemia hypothyroidism history of bilateral ureteral stents TAVR - Losartan 50 daily, metoprolol 12.5 twice daily, simvastatin 10 mg nightly, levothyroxine 150 mcg p.o. daily, hold Eliquis 5 mg p.o. twice daily metabolic CODE STATUS: DNR/DNI DVT prophylaxis: Eliquis Anticipated discharge date TBD Anticipated discharge place: TBD Objective - Vital Signs Vital signs: Vital Signs Temp 98.0 F 01/30/25 13:33 Pulse 66 01/30/25 13:33 Resp 17 01/30/25 13:33 BP 170/78 01/30/25 13:33 Pulse Ox 98 01/30/25 13:33 FiO2 Intake & Output 01/29/25 01/30/25 01/30/25 18:59 06:59 18:59 Intake Total 118 Balance 118 Intake: Oral 118 Other: Voiding Method External Catheter Toilet # Voids 5 5 5 # Bowel Movements 1 2 1 - Labs CBC & Chem 7: 01/30/25 15:29 01/28/25 13:17 Labs: Abnormal Lab Results - Last 24 Hours (Table) 01/30/25 Range/Units 15:29 MPV 9.1 L (9.5-12.2) fL Microbiology - Last 24 Hours (Table) 01/28/25 13:17 Urine Culture - Final Urine,Voided
[2025-01-31 00:49] LABS: Basophils # (A) 0.06 10*3/uL (0.00-0.10); Basophils % (A) 0.7 %; Eosinophils # (A) 0.23 10*3/uL (0.04-0.35); Eosinophils % (A) 2.5 %; HCT 38.5 % (37.2-46.3); HGB 12.6 g/dL (12.0-15.0); Lymphocytes % (A) 23.3 %; MCH 30.4 pg (27.0-32.0); MCHC 32.7 g/dL (32.0-37.0); MCV 92.8 fL (80.0-97.0); Mean Platelet Volume 9.4 fL (9.5-12.2); Monocytes # (A) 0.75 10*3/uL (0.20-1.00); Monocytes % (A) 8.3 %; Neutrophils # (A) 5.84 10*3/uL (1.80-7.70); Neutrophils % (A) 64.8 %; Platelet Count 307 10*3/uL (140-440); RBC 4.15 10*6/uL (4.10-5.20); RDW 13.5 % (11.5-14.5); WBC 9.02 10*3/uL (4.50-10.00)
[2025-01-31 07:58] VITALS: BP 155/74; PULSE 63; RESP 16; TEMP 98
[2025-01-31 10:28] LABS: Basophils # (A) 0.04 X 10*3/uL (0.00-0.10); Basophils % (A) 0.6 %; Eosinophils # (A) 0.17 X 10*3/uL (0.04-0.35); Eosinophils % (A) 2.5 %; HCT 39.7 % (37.2-46.3); HGB 12.5 g/dL (12.0-15.0); Lymphocytes # (A) 1.54 X 10*3/uL (0.90-5.00); Lymphocytes % (A) 22.8 %; MCH 29.6 pg (27.0-32.0); MCHC 31.5 g/dL (32.0-37.0); MCV 94.1 FL (80.0-97.0); Mean Platelet Volume 9.2 FL (9.5-12.2); Monocytes # (A) 0.51 X 10*3/uL (0.20-1.00); Monocytes % (A) 7.6 %; NRBC Per 100 WBC 0 X 10*3/uL (0.00-0.01); Neutrophils # (A) 4.45 X 10*3/uL (1.80-7.70); Neutrophils % (A) 66.1 %; Platelet Count 299 X 10*3/uL (140-440); RBC 4.22 X 10*6/uL (4.10-5.20); RDW 13.7 % (11.5-14.5); WBC 6.74 X 10*3/uL (4.50-10.00)
--- NOTE | 2025-01-31 12:51 | P.DS ---
Providers Date of admission: 01/30/25 14:04 Attending physician: Cinthia Upton MD Consults: 01/28/25 16:37 Consult Physician Routine Consulting Provider: Lv Sebastian Consult Reason/Comments: recurrent uti Do you want consulting provider notified?: Yes Primary care physician: Niles Johnston Hospital Course: Discharge Diagnosis: Recurrent complicated UTI, Klebsiella oxytoca Gross hematuria, resolved Diarrhea, improved Generalized weakness Hypertension Hyperlipidemia Hypothyroidism History of bilateral ureteral stents TAVR Hospital Course: Patient is a 79-year-old female with past medical history of hypertension, hyperlipidemia, hypothyroidism, history of bilateral ureteral stents, TAVR, who presented to the ER with generalized weakness and and failed outpatient UTI treatment. Patient was initially started on Bactrim switched to Macrobid, still notices dysuria, no associated fevers however endorses chills. Patient follows with urology at [facility], had cystoscopy done last Tuesday, she started having worsening symptoms since, urine cultures reviewed through patient's MyChart, growing Klebsiella, no antibiotic sensitivity available, looks like she was switched to nitrofurantoin based on sensitivity. She has been having with recurrent UTI for years, states that she is almost always symptomatic and rarely gets some improvement that is usually short lasting, so far workup was unrevealing. Patient and her daughter Patient had a fall last with no head injury On admission patient is afebrile, heart rate in 60s, normotensive, satting well on room air. Lab work showed normal CBC, coagulation panel, chemistry profile significant for mild hyponatremia 134, normal potassium, bicarb, creatinine, glucose slightly elevated 109, AST and ALT elevated 71 and 45 accordingly, UA showed cloudy urine with positive leukocyte esterase, WBC more than 182, bacteriuria, hematuria. Patient was provided with IV ceftriaxone and admitted as observation for failed outpatient UTI treatment. Urine culture sent. Urology consulted, recommend continuing current management and following up with urology at [facility]. Urine culture still pending, patient and her family are unable to get final on full urine cultures report from a week ago, thus, we will wait for urine cultures obtained in the ER as patient failed outpatient treatment. 01/29 she feels somewhat better, still experiences dysuria, no residual volumes 01/30: Seen and examined at bedside, continues to complain of frequency, she needs to use the bathroom every hour, had 2 episodes of loose bowel movement this morning and couple overnight. No send C. difficile. I was later notified that patient had an episode of gross hematuria, blood clots. Hemoglobin stat checked and showed hemoglobin of 13.4, urine cultures from [facility] received and reviewed, patient growing Klebsiella oxytoca resistant to ampicillin, cefazolin Bactrim, susceptible to nitrofurantoin, pip-tazo, ertapenem, Cipro, ceftriaxone, cefepime. Patient will be switched to inpatient for hemoglobin trend and monitoring of gross hematuria. 01/31: Hematuria resolved, patient is stable, she stated that she feels overall better from 2 days ago, her family was at bedside with multiple questions and concerns regarding her recurrent symptoms for the past 2 years, patient was recommended to follow-up with her [facility] urologist closely, as well as her primary care physician. She will be discharged on ciprofloxacin to complete an extended course of antibiotics for her complicated UTI that failed outpatient treatment. Eliquis to be resumed in 2 days Patient seen and examined at bedside.[] Vital signs reviewed and stable. General: [nontoxic], [no distress], [appears at stated age] Derm: [warm], [dry] Head: [atraumatic], [normocephalic], [symmetric] Eyes: [EOMI], [no lid lag], [anicteric sclera] Mouth: [no lip lesion], [mucus membranes moist] Cardiovascular: [S1S2 reg], [no murmur] Lungs: [CTA bilateral], [no rhonchi, no rales] , [no accessory muscle use] Abdominal: [soft], [ nontender to palpation], [no guarding], [no appreciable organomegaly] Ext: [no gross muscle atrophy], [no edema], [no contractures] Neuro: [ CN II-XI grossly intact], [no focal neuro deficits] Psych: [Alert], [oriented], [appropriate affect] A total of 40 minutes of time were spent preparing this complex discharge summary. Patient was discharged on 01/31/2025. Patient Condition at Discharge: Stable Plan - Discharge Summary Discharge Rx Participant: Yes New Discharge Prescriptions: New Ciprofloxacin HCl [Cipro] 250 mg PO Q12HR 3 Days #2 tab Continue Simvastatin [Zocor] 10 mg PO HS Losartan [Cozaar] 50 mg PO DAILY Metoprolol Tartrate [Lopressor] 12.5 mg PO BID timoloL maleate [timoloL maleate 0.25%] 1 drop BOTH EYES DAILY Nitrofurantoin Monohyd/M-Cryst [Macrobid] 100 mg PO Q12HR Latanoprost/Pf [Latanoprost 0.005% Eye Drop] 1 drop BOTH EYES HS Apixaban [Eliquis] 5 mg PO BID Levothyroxine Sodium [Synthroid] 150 mcg PO DAILY Discharge Medication List Simvastatin [Zocor] 10 mg PO HS 01/31/14 [History] Losartan [Cozaar] 50 mg PO DAILY 07/30/15 [History] Metoprolol Tartrate [Lopressor] 12.5 mg PO BID 07/30/15 [History] Latanoprost/Pf [Latanoprost 0.005% Eye Drop] 1 drop BOTH EYES HS 08/03/21 [History] timoloL maleate [timoloL maleate 0.25%] 1 drop BOTH EYES DAILY 08/03/21 [History] Apixaban [Eliquis] 5 mg PO BID 01/28/25 [History] Levothyroxine Sodium [Synthroid] 150 mcg PO DAILY 01/28/25 [History] Nitrofurantoin Monohyd/M-Cryst [Macrobid] 100 mg PO Q12HR 01/28/25 [History] Ciprofloxacin HCl [Cipro] 250 mg PO Q12HR 3 Days #2 tab 01/31/25 [Rx] Follow up Appointment(s)/Referral(s): Niles Johnston DO [Primary Care Provider] - 1-2 days [facility] Visiting Nurse, [NON-STAFF] - As Needed Patient Instructions/Handouts: Urinary Tract Infection in Women (DC) Activity/Diet/Wound Care/Special Instructions: Please, follow-up with your primary care physician, your urologist at [facility]. Get your blood work done next Tuesday, resume your Eliquis on 02/02. As we discussed, should you notice blood in your urine again, please, stop Eliquis, contact your primary care physician. If the bleeding does not stop or gets worse, come back to the ER. Discharge Disposition: HOME WITH HOME HEALTH SERVICES
== END 2025-01-31 14:03 | disposition home health service (06) | DRG 690 ==
LOC: EC 12:12 → 6NMEDSUR 15:23 → OBSVTOIN 01-30 14:04
PROVIDERS: ADMIT Student in an Organized Health Care Education/Training Program; ATTEND Student in an Organized Health Care Education/Training Program
DX: N39.0 Urinary tract infection, site not specified (principal); Z66 Do not resuscitate; B96.1 Klebsiella pneumoniae [K. pneumoniae] as the cause of diseases classified elsewhere; E03.9 Hypothyroidism, unspecified; I10 Essential (primary) hypertension; Z95.3 Presence of xenogenic heart valve; E87.1 Hypo-osmolality and hyponatremia; Z16.11 Resistance to penicillins; I48.91 Unspecified atrial fibrillation; Z93.3 Colostomy status; E78.5 Hyperlipidemia, unspecified; R53.1 Weakness; F41.9 Anxiety disorder, unspecified; R31.0 Gross hematuria; Z79.01 Long term (current) use of anticoagulants; Z79.82 Long term (current) use of aspirin; Z79.890 Hormone replacement therapy; Z79.899 Other long term (current) drug therapy; Z82.49 Family history of ischemic heart disease and other diseases of the circulatory system; Z87.440 Personal history of urinary (tract) infections; Z87.19 Personal history of other diseases of the digestive system; Z95.4 Presence of other heart-valve replacement; Z91.81 History of falling
CPT/HCPCS: 36415; 71046; 80053; 81001; 83605; 85025; 85610; 85730; 87086; 87324; 93005; 96361; 96365; 96366; 99285